=== PATIENT | male | born 1995 | race Caucasian/White ===

== ENCOUNTER 2020-10-11 12:02 | Inpatient (IN) ==
[2020-10-11] MEDS ORDERED: Haloperidol Lactate 5 MG/ML VIAL IM PRN (12:07)
[2020-10-11] MEDS ORDERED: haloperidoL 5 MG TABLET PO PRN (12:07)
[2020-10-11] MEDS ORDERED: traZODone 50 MG TABLET PO PRN (12:07)
[2020-10-11] MEDS ORDERED: *HR* LORazepam 1 MG TABLET PO PRN (12:07)
[2020-10-11] MEDS ORDERED: hydrOXYzine pamoate 25 MG CAPSULE PO PRN (12:07)
[2020-10-11] MEDS ORDERED: *HR* LORazepam 2 MG/ML VIAL IM PRN (12:07)
[2020-10-11] MEDS ORDERED: Acetaminophen 325 MG TABLET PO PRN (12:07)
[2020-10-11] MEDS ORDERED: MOM Conc 10 ML UD.LIQ PO PRN (12:07)
[2020-10-11] MEDS ORDERED: Mag Hydrox/Al Hydrox/Simeth 30 ML UDC PO PRN (12:07)
[2020-10-11] MEDS: ARIPiprazole 5 MG TABLET PO SCH (14:24)
[2020-10-12] MEDS: ARIPiprazole 5 MG TABLET PO SCH (09:29)
[2020-10-12 09:35] VITALS: BP 153/86
== END 2020-10-12 14:50 | disposition home or self-care (01) | DRG 885 ==
LOC: 1ANU 12:02
PROVIDERS: ADMIT Psychiatry & Neurology Psychiatry; ATTEND Psychiatry & Neurology Psychiatry